=== PATIENT | female | born 1940 | race Caucasian/White ===

== ENCOUNTER 2018-03-06 09:09 | Outpatient (CLI) | payer MEDICARE, BC | END 2018-03-06 09:10 | disposition home or self-care (01) | LOC: BICMAMMO 09:09 | PROVIDERS: ATTEND Internal Medicine Hematology & Oncology | DX: Z12.31 Encounter for screening mammogram for malignant neoplasm of breast (principal); Z80.3 Family history of malignant neoplasm of breast; Z85.3 Personal history of malignant neoplasm of breast | CPT/HCPCS: 77063; 77067 ==

== ENCOUNTER 2019-03-08 10:07 | Outpatient (CLI) | payer MEDICARE, BC ==
--- NOTE | 2019-03-08 11:08 | MMO ---
Bilateral MAMMO Bilat Screen [facility]. CLINICAL HISTORY: Patient is 78 years old and is seen for screening. The patient has the following family history of breast cancer: cousin female, malignant (generic) and maternal aunt, malignant (generic). 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 The patient has a history of left Mastectomy in 1958 and right Excisional Biopsy in 1958 - malignant. VIEWS: The views performed were: right craniocaudal with tomosynthesis and right mediolateral oblique with tomosynthesis. FILMS COMPARED: The present examination has been compared to prior imaging studies performed at [facility] on 02/06/2015, 02/25/2016, 02/27/2017 and 03/06/2018. This study has been interpreted with the assistance of computer-aided detection. MAMMOGRAM FINDINGS: There are scattered fibroglandular densities. There is an irregular mass measuring 13 millimeters with spiculated margins seen in the right breast at 2 o'clock. This is associated with an area of stable dystrophic calcifications. There is associated retraction of the overlying skin. In the left breast, there are no suspicious masses, calcifications or areas of architectural distortion. IMPRESSION: MASS IN THE RIGHT BREAST REQUIRES ADDITIONAL EVALUATION. AN ULTRASOUND EXAM IS RECOMMENDED. THE RESULTS OF THIS EXAM WERE SENT TO THE PATIENT. ACR BI-RADS Category 0 - Incomplete: Need additional imaging evaluation. [facility] will notify the patient of the need for additional imaging services. MAMMOGRAPHY NOTE: 1. A negative mammogram report should not delay a biopsy if a dominant of clinically suspicious mass is present. 2. Approximately 10% to 15% of breast cancers are not detected by mammography. 3. Adenosis and dense breasts may obscure an underlying neoplasm. Reported by: RAN SHEARER MD Electonically Signed: [id number]
== END 2019-03-08 10:08 | disposition home or self-care (01) ==
LOC: BICMAMMO 10:07
PROVIDERS: ATTEND Internal Medicine Hematology & Oncology
DX: Z12.31 Encounter for screening mammogram for malignant neoplasm of breast (principal); N63.10 Unspecified lump in the right breast, unspecified quadrant; Z80.3 Family history of malignant neoplasm of breast; Z85.3 Personal history of malignant neoplasm of breast; Z90.12 Acquired absence of left breast and nipple
CPT/HCPCS: 77063; 77067

== ENCOUNTER 2019-03-14 10:28 | Outpatient (CLI) | payer MEDICARE, BC ==
--- NOTE | 2019-03-14 12:39 | ULT ---
ULTRASOUND RIGHT BREAST MASS: HISTORY: Abnormality seen on recent mammogram. COMPARISON: Multiple prior mammograms, the most recent 03/08/2019. FINDINGS: Corresponding to the spiculated masses, a scar from prior lumpectomy with dense calcifications. There is some adjacent multiple benign calcifications. IMPRESSION: BIRADS 4: Suspicious. Predominantly given the mammographic abnormality and the spiculations around t he area of scar which has increased, ultrasound-guided biopsy recommended. CODE CR POS: OFF
--- NOTE | 2019-03-14 14:42 | ULT ---
ULTRASOUND GUIDED RIGHT BREAST MASS BIOPSY: HISTORY: Mass. COMPARISON: Breast ultrasound from the same day. Mammogram from the same day. FINDINGS: The patient was brought to the ultrasound suite. All questions were answered. Informed consent was ob tained. A time out was performed. The superficial, irregular calcified breast mass, right breast, 11 o'clock, was visualized. Lidocaine 3 mL was instilled into the superficial and deep soft tissues. After adequate anesthesia, a total of four 14 gauge cores were obtained. The patient tolerated the procedure well without compli cation. A clip was placed in good position on the post clip mammogram. IMPRESSION: Technically successful ultrasound guided breast mass biopsy. POS: OFF
--- NOTE | 2019-03-20 12:34 | MMO ---
Right Breast Mammogram Diagnostic Right W CAD. CLINICAL HISTORY: Patient is 78 years old and is seen for breast biopsy. The patient has the following family history of breast cancer: cousin female, malignant (generic) and maternal aunt, malignant (generic). 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 The patient has a history of left Mastectomy in 1958 and right Excisional Biopsy in 1958 - malignant. VIEWS: The views performed were: right craniocaudal and right mediolateral oblique. FILMS COMPARED: The present examination has been compared to prior imaging studies performed at [facility] on 02/25/2016, 02/27/2017, 03/06/2018 and 03/08/2019. This study has been interpreted with the assistance of computer-aided detection. MAMMOGRAM FINDINGS: There are scattered fibroglandular densities. IMPRESSION: FINDING IN THE RIGHT BREAST IS CONFIRMED UTILIZING POST PROCEDURE MAMMOGRAM. THE RESULTS OF THIS EXAM WERE SENT TO THE PATIENT. MAMMOGRAPHY NOTE: 1. A negative mammogram report should not delay a biopsy if a dominant of clinically suspicious mass is present. 2. Approximately 10% to 15% of breast cancers are not detected by mammography. 3. Adenosis and dense breasts may obscure an underlying neoplasm. Transcribed Date/Time: 03/20/2019 12:33 PM
== END 2019-03-14 10:29 | disposition home or self-care (01) ==
LOC: BICULT 10:28
PROVIDERS: ATTEND Internal Medicine Hematology & Oncology
DX: N63.11 Unspecified lump in the right breast, upper outer quadrant (principal); R92.0 Mammographic microcalcification found on diagnostic imaging of breast; N60.31 Fibrosclerosis of right breast; Z85.3 Personal history of malignant neoplasm of breast
CPT/HCPCS: 19083; 88305; 88341; 88342

== ENCOUNTER 2020-03-18 14:47 | Outpatient (CLI) | payer MEDICARE, BC ==
--- NOTE | 2020-03-18 16:11 | MMO ---
Bilateral MAMMO Bilat Screen [facility]. CLINICAL HISTORY: Patient is 79 years old and is seen for screening. The patient has the following family history of breast cancer: cousin female, malignant (generic) and maternal aunt, malignant (generic). The patient has a history of malignant (generic) in the right breast at age 54. The patient has a history of right Ultrasound Guided Core Biopsy in March, - benign, left Mastectomy at age 59 and right Excisional Biopsy at age 54 - malignant. VIEWS: The views performed were: bilateral craniocaudal with tomosynthesis and bilateral mediolateral oblique with tomosynthesis. FILMS COMPARED: The present examination has been compared to prior imaging studies performed at [facility] on 03/06/2018, 03/08/2019 and 03/14/2019. This study has been interpreted with the assistance of computer-aided detection. MAMMOGRAM FINDINGS: There are scattered fibroglandular densities. Finding 1: There are stable benign appearing calcifications seen in the right breast. Finding 2: There is a stable irregular mass measuring 12 millimeters with spiculated margins and associated coarse heterogeneous calcifications seen in the anterior region of the right breast at 12 o'clock. In the left breast, there are no suspicious masses, calcifications or areas of architectural distortion. IMPRESSION: FINDING 1: STABLE CALCIFICATIONS IN THE RIGHT BREAST ARE BENIGN. FINDING 2: STABLE MASS IN THE RIGHT BREAST IS A KNOWN MALIGNANCY. A ROUTINE FOLLOW-UP MAMMOGRAM IN 1 YEAR IS RECOMMENDED. KNOWN MALIGNANCY - CONTINUE CLINICALLY INDICATED. THE RESULTS OF THIS EXAM WERE SENT TO THE PATIENT. ACR BI-RADS Category 6 - Known Biopsy Proven Malignancy MAMMOGRAPHY NOTE: 1. A negative mammogram report should not delay a biopsy if a dominant of clinically suspicious mass is present. 2. Approximately 10% to 15% of breast cancers are not detected by mammography. 3. Adenosis and dense breasts may obscure an underlying neoplasm. Reported by: BRYAN DE OLIVEIRA MD Electonically Signed: [id number]
== END 2020-03-18 14:48 | disposition home or self-care (01) ==
LOC: BICMAMMO 14:47
PROVIDERS: ATTEND Internal Medicine Hematology & Oncology
DX: Z12.31 Encounter for screening mammogram for malignant neoplasm of breast (principal); Z85.3 Personal history of malignant neoplasm of breast; Z80.3 Family history of malignant neoplasm of breast; Z91.89 Other specified personal risk factors, not elsewhere classified; Z90.12 Acquired absence of left breast and nipple; R92.1 Mammographic calcification found on diagnostic imaging of breast
CPT/HCPCS: 77063; 77067

== ENCOUNTER 2020-06-28 13:27 | Emergency (ER) | payer MEDICARE, BC ==
[2020-06-28 18:06] LABS: SARS-CoV-2 PCR by NAA Not Detected (NotDetected)
== END 2020-06-28 13:58 | disposition home or self-care (01) ==
LOC: ERS 13:27
DX: Z20.822 Contact with and (suspected) exposure to COVID-19 (principal); E78.5 Hyperlipidemia, unspecified
CPT/HCPCS: U0003; U0005; 87635; 99283

== ENCOUNTER 2020-07-01 08:55 | Emergency (ER) | payer MEDICARE, BC ==
[2020-07-02 08:46] LABS: SARS-CoV-2 PCR by NAA Not Detected (NotDetected)
== END 2020-07-01 09:09 | disposition home or self-care (01) ==
LOC: ERS 08:55
DX: Z20.822 Contact with and (suspected) exposure to COVID-19 (principal); E78.5 Hyperlipidemia, unspecified
CPT/HCPCS: U0003; U0005; 87635; 99283

== ENCOUNTER 2020-07-05 12:24 | Emergency (ER) | payer MEDICARE, BC ==
[2020-07-05 23:14] LABS: SARS-CoV-2 PCR by NAA Not Detected (NotDetected)
== END 2020-07-05 13:01 | disposition home or self-care (01) ==
LOC: ERS 12:24
DX: Z20.822 Contact with and (suspected) exposure to COVID-19 (principal); E78.5 Hyperlipidemia, unspecified
CPT/HCPCS: U0003; U0005; 87635; 99283

== ENCOUNTER 2021-03-22 09:51 | Outpatient (CLI) | payer MEDICARE, BC | END 2021-03-22 09:52 | disposition home or self-care (01) | LOC: BICMAMMO 09:51 | PROVIDERS: ATTEND Internal Medicine Hematology & Oncology | DX: Z12.31 Encounter for screening mammogram for malignant neoplasm of breast (principal); Z80.3 Family history of malignant neoplasm of breast; Z85.3 Personal history of malignant neoplasm of breast; Z90.12 Acquired absence of left breast and nipple | CPT/HCPCS: 77063; 77067 ==

== ENCOUNTER 2021-11-25 14:29 | Emergency (ER) | payer MEDICARE, BC ==
[2021-11-25 15:11] LABS: #Lymphocytes 0.9 thou/uL (1.20-3.40); #Monocytes 0.2 thou/uL (0.11-0.59); #Neutrophils 1.9 thou/uL (1.40-6.50); %Basophils 0.3 % (0.0-1.0); %Eosinophils 1.3 % (0.0-10.0); %Lymphocytes 28.7 % (21.0-51.0); %Monocytes 5.1 % (0.0-10.0); %Neutrophils 64.6 % (42.0-75.0); Hemoglobin 13.8 g/dL (12.0-16.0); Mean Corpuscular HGB CONC 32.6 g/dL (32.0-36.0); Mean Corpuscular Volume 98.4 fL (78.0-98.0); Mean Platelet Volume 7.8 fL (7.4-10.4); Platelet Count 150 thou/uL (130-400); RBC Distribution Width 12.6 % (11.5-14.5)
[2021-11-25 15:32] LABS: ALT (SGPT) 14 U/L (8-55); AST (SGOT) 16 U/L (5-34); Albumin 4.3 g/dL (3.4-4.8); Alkaline Phosphatase 99 U/L (40-110); Anion Gap 12 mmol/L (10-20); BUN (Urea Nitrogen) 16 mg/dL (9.8-20.1); Bilirubin, Total 1.5 mg/dL (0.2-1.2); Calc. Creatinine Clearance 0 mL/min (70-130); Calcium 9.8 mg/dL (7.8-10.44); Carbon Dioxide 26 mmol/L (23-31); Chloride 106 mmol/L (98-107); Globulin 3.3 g/dL (2.4-3.5); Glucose 154 mg/dL (83-110); Potassium 4.4 mmol/L (3.5-5.1); Protein, Total 7.6 g/dL (5.8-8.1); Sodium 140 mmol/L (136-145)
[2021-11-25 16:52] LABS: Bacteria/HPF None Seen HPF (None Seen); Bilirubin Negative (Negative); Blood, Urine 1+ (Negative); Clarity Clear (Clear); Glucose, Urine (Dipstick) Normal (Negative); Ketone, Urine Negative (Negative); Leukocyte Negative Leu/uL (Negative); Nitrite Negative (Negative); Protein, Urine (Dipstick) Negative (Neg-Trace); Specific Gravity, Urine 1.027 (1.002-1.036); Squamous Epithelial 0-3 HPF (0-3); Urobilinogen Normal mg/dL (Less than 2); WBC/HPF 0-3 HPF (0-3)
== END 2021-11-25 17:30 | disposition home or self-care (01) ==
LOC: ERS 14:29
DX: R55 Syncope and collapse (principal); E78.5 Hyperlipidemia, unspecified; Z85.3 Personal history of malignant neoplasm of breast; Z79.899 Other long term (current) drug therapy
CPT/HCPCS: 70450; 80053; 81003; 81015; 84484; 85025; 93005

== ENCOUNTER 2022-03-24 11:17 | Outpatient (CLI) | payer MEDICARE, BC | END 2022-03-24 11:18 | disposition home or self-care (01) | LOC: BICMAMMO 11:17 | PROVIDERS: ATTEND Internal Medicine Hematology & Oncology | DX: Z12.31 Encounter for screening mammogram for malignant neoplasm of breast (principal); Z90.12 Acquired absence of left breast and nipple; Z85.3 Personal history of malignant neoplasm of breast; Z80.3 Family history of malignant neoplasm of breast | CPT/HCPCS: 77063; 77067 ==

== ENCOUNTER 2023-04-19 12:41 | Outpatient (CLI) | payer MEDICARE, BC | END 2023-04-19 12:42 | disposition home or self-care (01) | LOC: BICMAMMO 12:41 | PROVIDERS: ATTEND Internal Medicine Hematology & Oncology | DX: Z12.31 Encounter for screening mammogram for malignant neoplasm of breast (principal); Z85.3 Personal history of malignant neoplasm of breast; Z80.3 Family history of malignant neoplasm of breast; Z90.12 Acquired absence of left breast and nipple; Z91.89 Other specified personal risk factors, not elsewhere classified | CPT/HCPCS: 77063; 77067 ==

== ENCOUNTER 2024-04-25 09:52 | Outpatient (CLI) | payer MEDICARE, BC | END 2024-04-25 09:53 | disposition home or self-care (01) | LOC: BICMAMMO 09:52 | PROVIDERS: ATTEND Internal Medicine Hematology & Oncology | DX: Z12.31 Encounter for screening mammogram for malignant neoplasm of breast (principal); Z80.3 Family history of malignant neoplasm of breast; Z85.3 Personal history of malignant neoplasm of breast; Z91.89 Other specified personal risk factors, not elsewhere classified; Z90.12 Acquired absence of left breast and nipple; Z98.890 Other specified postprocedural states | CPT/HCPCS: 77063; 77067 ==

== ENCOUNTER 2024-04-30 08:14 | Outpatient (CLI) | payer MEDICARE, BC | END 2024-04-30 08:15 | disposition home or self-care (01) | LOC: CT 08:14 | PROVIDERS: ATTEND Internal Medicine Cardiovascular Disease | DX: I77.9 Disorder of arteries and arterioles, unspecified (principal); R55 Syncope and collapse | CPT/HCPCS: 36415; 70498; 82565 ==